=== PATIENT | male | born 1950 | race Caucasian/White ===

== ENCOUNTER → 2021-05-09 | Outpatient (CLI) | payer OTHER | LOC: HEART CORB 13:43 | DX: I25.10 Atherosclerotic heart disease of native coronary artery without angina pectoris (principal); R60.0 Localized edema; Z95.2 Presence of prosthetic heart valve; I08.3 Combined rheumatic disorders of mitral, aortic and tricuspid valves; I27.20 Pulmonary hypertension, unspecified | CPT/HCPCS: 93306 ==